=== PATIENT | female | born 1950 | race African-American/Black ===

== ENCOUNTER 2019-09-10 05:33 | Emergency (ER) | payer BC ==
[~2019-09-10] VITALS: Ht 170.2 cm; Wt 82.0 kg
[2019-09-10] MEDS ORDERED: LABETALOL 5MG/ML SYR 20 MG/4 ML SYRINGE IV ONE ×2 (06:00→09:15)
[2019-09-10 06:25] LABS: EOSINOPHILS % 3.5 % (0.0-5.0); HEMATOCRIT. 38.6 % (36.0-48.0); HEMOGLOBIN. 12.8 g/dL (12.0-16.0); MEAN CORPUSCULAR HEMOGLOBIN 31.5 pg (28.0-32.0); MEAN CORPUSCULAR VOLUME 94.7 fL (81.0-99.0); MEAN PLATELET VOLUME 9.3 fl (7.4-10.4); MONOCYTES % 5.5 % (2.0-8.0); PLATELET 211 x1000/uL (130-400); RED BLOOD CELL COUNT 4.07 mill/uL (4.2-5.4); RED CELL DISTRIBUTION WIDTH 14.3 % (11.6-14.6)
[2019-09-10 06:29] LABS: CHLORIDE 108 mEq/L (98-107)
[2019-09-10] MEDS ORDERED: MORPHINE SULFATE 4 MG/ML CPJ (NOT FOR IM USE) IV ONE ×2 (06:30→08:00)
[2019-09-10] MEDS ORDERED: IOHEXOL-350 100 ML BOTTLE ONE (07:13)
[2019-09-10] MEDS ORDERED: HYDRALAZINE 20MG/ML VIAL IV ONE ×2 (09:15→10:45)
[2019-09-10] MEDS ORDERED: ONDANSETRON HCL 4MG/2ML INJ IV ONE (11:00)
[2019-09-10 11:57] VITALS: BP 173/86
== END 2019-09-10 12:11 | disposition short-term general hospital (02) ==
LOC: ER 05:33 → CANBEDREQ 15:08
DX: S27.892A Contusion of other specified intrathoracic organs, initial encounter (principal); E78.00 Pure hypercholesterolemia, unspecified; I10 Essential (primary) hypertension; E03.9 Hypothyroidism, unspecified; Z88.2 Allergy status to sulfonamides; Z98.890 Other specified postprocedural states; Z86.79 Personal history of other diseases of the circulatory system; X58.XXXA Exposure to other specified factors, initial encounter; Y93.89 Activity, other specified; Y92.89 Other specified places as the place of occurrence of the external cause; Y99.8 Other external cause status
CPT/HCPCS: 36415; 71045; 71275; 74174; 80053; 83880; 84484; 85025; 93005; 96374; 96375; 96376; 99291; J0360; J2270; J2405; Q9967

== ENCOUNTER 2020-06-20 00:42 | Emergency (ER) | payer BC, MEDICARE ==
[~2020-06-20] VITALS: Ht 175.3 cm; Wt 63.0 kg
[2020-06-20] MEDS ORDERED: LIDOCAINE HCL/PF 1% 10 MG/ML 5ML VIAL IJ ONE (02:15)
[2020-06-20] MEDS ORDERED: BACITRACIN ZINC OINT UDPKT TOP ONE (02:15)
[2020-06-20] MEDS ORDERED: TETANUS, DIPHTHERIA, PERTUSSIS VAC/PF 0.5ML (>7YR OLD) IM ONE (02:15)
[2020-06-20 02:32] LABS: BASOPHILS % 1.3 % (0.0-2.0); EOSINOPHILS % 3.9 % (0.0-5.0); HEMATOCRIT. 32.6 % (36.0-48.0); HEMOGLOBIN. 11.1 g/dL (12.0-16.0); LYMPHOCYTES % 14.9 % (20.0-50.0); MEAN CORPUSCULAR HEMOGLOBIN 32.7 pg (28.0-32.0); MEAN CORPUSCULAR VOLUME 96.2 fL (81.0-99.0); MEAN PLATELET VOLUME 8.2 fl (7.4-10.4); MONOCYTES % 4.8 % (2.0-8.0); NEUTROPHILS % 75.1 % (40.0-76.0); PLATELET 177 x1000/uL (130-400); RED BLOOD CELL COUNT 3.39 mill/uL (4.2-5.4); RED CELL DISTRIBUTION WIDTH 13.8 % (11.6-14.6)
[2020-06-20 02:37] LABS: CHLORIDE 111 mEq/L (98-107)
[2020-06-20 02:43] LABS: INR 1.1; PARTIAL THROMBOPLASTIN TIME 23.3 sec (23.4-31.0); PROTHROMBIN TIME 11.4 sec (9.6-11.0)
[2020-06-20] MEDS ORDERED: LORAZEPAM 2MG/ML CPJ IV ONE (02:45)
[2020-06-20] MEDS ORDERED: LABETALOL HCL 20MG/4ML CARPUJECT IV SCH (03:00)
[2020-06-20 04:21] LABS: CLARITY URINE CLEAR (CLEAR); COLOR URINE YELLOW (YELLOW); KETONES URINE NEGATIVE (NEGATIVE); LEUKOCYTE ESTERASE URINE NEGATIVE (NEGATIVE); NITRITE URINE NEGATIVE (NEGATIVE); OCCULT BLOOD URINE TRACE (NEGATIVE); PROTEIN URINE 1+ (NEGATIVE); SPECIFIC GRAVITY URINE 1.014 (1.005-1.030); UROBILINOGEN URINE 0.2 E.U./dL (0.2-1.0)
[2020-06-20] MEDS ORDERED: HALOPERIDOL 5MG TABLET PO ONE (06:45)
[2020-06-20] MEDS ORDERED: LOSARTAN POTASSIUM 25 MG TABLET PO ONE (08:00)
[2020-06-20] MEDS ORDERED: ATENOLOL 25MG TABLET PO ONE (08:00)
[2020-06-20] MEDS ORDERED: ATENOLOL 50 MG TABLET PO ONE (08:00)
[2020-06-20 10:00] VITALS: BP 174/94
== END 2020-06-20 13:00 | disposition home or self-care (01) ==
LOC: ER 00:42
DX: F03.90 Unspecified dementia, unspecified severity, without behavioral disturbance, psychotic disturbance, mood disturbance, and anxiety (principal); E11.9 Type 2 diabetes mellitus without complications; I10 Essential (primary) hypertension; Z88.2 Allergy status to sulfonamides
CPT/HCPCS: 36415; 70450; 71045; 72170; 73130; 74176; 80053; 81003; 83605; 83880; 84484; 85025; 85610; 85730; 90715; 93005; 99285; J1630; J2060; J3490

== ENCOUNTER 2020-07-21 01:27 | Inpatient (IN) | payer MEDICARE ==
[~2020-07-21] VITALS: Ht 170.2 cm; Wt 60.0 kg
[2020-07-21 02:12] LABS: BASOPHILS % 0.7 % (0.0-2.0); EOSINOPHILS % 4.3 % (0.0-5.0); HEMATOCRIT. 33.5 % (36.0-48.0); LYMPHOCYTES % 31.6 % (20.0-50.0); MEAN CORPUSCULAR HEMOGLOBIN 32.7 pg (28.0-32.0); MEAN CORPUSCULAR VOLUME 99.9 fL (81.0-99.0); MEAN PLATELET VOLUME 8.6 fl (7.4-10.4); MONOCYTES % 4.1 % (2.0-8.0); NEUTROPHILS % 59.3 % (40.0-76.0); PLATELET 158 x1000/uL (130-400); RED BLOOD CELL COUNT 3.36 mill/uL (4.2-5.4)
[2020-07-21 02:19] LABS: CHLORIDE 109 mEq/L (98-107)
[2020-07-21] MEDS ORDERED: SODIUM CHLORIDE 0.9% 1,000 ML IV ONE (02:45)
[2020-07-21 02:59] LABS: INR 1.1; PROTHROMBIN TIME 11.4 sec (9.6-11.0)
[2020-07-21] MEDS ORDERED: ATENOLOL 25MG TABLET PO ONE (03:30)
[2020-07-21] MEDS ORDERED: CEFTRIAXONE 1 G PREMIX 50 ML IV ONE (03:30)
[2020-07-21 04:53] LABS: CLARITY URINE CLEAR (CLEAR); COLOR URINE YELLOW (YELLOW); KETONES URINE NEGATIVE (NEGATIVE); LEUKOCYTE ESTERASE URINE NEGATIVE (NEGATIVE); NITRITE URINE NEGATIVE (NEGATIVE); OCCULT BLOOD URINE TRACE (NEGATIVE); PH URINE 6.5 (4.5-8.0); PROTEIN URINE 1+ (NEGATIVE); SPECIFIC GRAVITY URINE 1.013 (1.005-1.030); UROBILINOGEN URINE 0.2 E.U./dL (0.2-1.0)
[2020-07-21] MEDS ORDERED: IOHEXOL-350 100 ML BOTTLE ONE (06:05)
[2020-07-21] MEDS ORDERED: LORAZEPAM 2MG/ML CPJ IV ONE ×2 (07:45→08:30)
[2020-07-21] MEDS ORDERED: ONDANSETRON HCL 4MG/2ML INJ IV PRN (10:00)
[2020-07-21] MEDS ORDERED: IPRATROPIUM/ALBUTEROL 0.5-3(2.5)MG/3ML NEB HHN PRN (10:00)
[2020-07-21] MEDS: HYDRALAZINE 20MG/ML VIAL IV PRN ×2 (10:48→17:17)
[2020-07-21 16:08] LABS: CREATINE KINASE MB FRACTION 3.5 ng/mL (0.5-3.6)
[2020-07-21] MEDS: ACETAMINOPHEN 325MG TABLET PO PRN (19:18)
[2020-07-21 23:13] LABS: CREATINE KINASE MB FRACTION 3.2 ng/mL (0.5-3.6)
[2020-07-21 23:35] LABS: *COCAINE SCREEN URINE NEGATIVE (NEGATIVE)
[2020-07-21 23:37] LABS: *AMPHETAMINES SCREEN URINE NEGATIVE (NEGATIVE); *BARBITURATES SCREEN URINE NEGATIVE (NEGATIVE); *BENZODIAZEPINES SCREEN URINE NEGATIVE (NEGATIVE); CANNABINOID URINE SCREEN PRESUMTIVE POSITIVE (NEGATIVE); METHADONE URINE SCREEN NEGATIVE (NEGATIVE); OPIATES URINE SCREEN NEGATIVE (NEGATIVE); PHENCYCLIDINE URINE SCREEN NEGATIVE (NEGATIVE)
[2020-07-22] MEDS: HYDRALAZINE 20MG/ML VIAL IV PRN ×3 (00:43→14:04)
[2020-07-22] MEDS: DIPHENHYDRAMINE 50MG/ML VIAL IV PRN ×2 (02:35→07:50)
[2020-07-22 04:34] LABS: EOSINOPHILS % 1.8 % (0.0-5.0); HEMOGLOBIN. 11.9 g/dL (12.0-16.0); LYMPHOCYTES % 20.3 % (20.0-50.0); MEAN CORPUSCULAR HEMOGLOBIN 32.2 pg (28.0-32.0); MEAN CORPUSCULAR VOLUME 97.1 fL (81.0-99.0); MEAN PLATELET VOLUME 9.1 fl (7.4-10.4); MONOCYTES % 4.7 % (2.0-8.0); NEUTROPHILS % 72.2 % (40.0-76.0); PLATELET 146 x1000/uL (130-400); RED CELL DISTRIBUTION WIDTH 13.8 % (11.6-14.6)
[2020-07-22 04:41] LABS: CHLORIDE 110 mEq/L (98-107)
[2020-07-22 04:50] LABS: LDL CHOLESTEROL 124 mg/dL (5-100)
[2020-07-22 04:52] LABS: HDL CHOLESTEROL 101 mg/dL (40-59)
[2020-07-22 10:02] LABS: T4 FREE 0.67 ng/dL (0.76-1.46)
[2020-07-22] MEDS ORDERED: LORAZEPAM 2MG/ML CPJ IM NR (11:25)
[2020-07-22] MEDS: CLONIDINE 0.1MG TABLET PO PRN ×2 (17:00→23:38)
[2020-07-23] VITALS (12 sets, daily range): BP systolic 106–173; BP diastolic 59–96
[2020-07-23] MEDS: RISPERIDONE 1MG TABLET PO SCH ×3 (00:21→09:40)
[2020-07-23] MEDS ORDERED: DEXTROSE 50% WATER 50ML SYRINGE IV PRN (03:15)
[2020-07-23] MEDS: BLOOD SUGAR DIAGNOSTIC STRIP TEST SCH ×4 (06:21→20:53)
[2020-07-23] MEDS: LEVOTHYROXINE SODIUM 100MCG TABLET PO SCH (06:21)
[2020-07-23 06:39] LABS: BASOPHILS % 0.5 % (0.0-2.0); EOSINOPHILS % 1.1 % (0.0-5.0); HEMOGLOBIN. 12.1 g/dL (12.0-16.0); LYMPHOCYTES % 19.3 % (20.0-50.0); MEAN CORPUSCULAR HEMOGLOBIN 32.9 pg (28.0-32.0); MEAN CORPUSCULAR VOLUME 97.7 fL (81.0-99.0); MONOCYTES % 6.9 % (2.0-8.0); NEUTROPHILS % 72.2 % (40.0-76.0); PLATELET 154 x1000/uL (130-400); RED BLOOD CELL COUNT 3.68 mill/uL (4.2-5.4); RED CELL DISTRIBUTION WIDTH 14.1 % (11.6-14.6)
[2020-07-23] MEDS: INSULIN LISPRO 100 UNITS/ML SUBCUT SCH ×4 (07:20→20:53)
[2020-07-23] MEDS: CLONIDINE 0.1MG TABLET PO PRN (08:16)
[2020-07-23] MEDS: RISPERIDONE 0.5MG TABLET PO SCH (20:57)
[2020-07-24] VITALS (8 sets, daily range): BP systolic 132–159; BP diastolic 42–106
[2020-07-24] MEDS: ACETAMINOPHEN 325MG TABLET PO PRN (05:16)
[2020-07-24] MEDS: LEVOTHYROXINE SODIUM 100MCG TABLET PO SCH (06:35)
[2020-07-24] MEDS: BLOOD SUGAR DIAGNOSTIC STRIP TEST SCH ×2 (06:36→12:15)
[2020-07-24] MEDS ORDERED: HALOPERIDOL LACTATE 5MG/ML VIAL IM NR (06:45)
[2020-07-24] MEDS: INSULIN LISPRO 100 UNITS/ML SUBCUT SCH ×2 (07:20→12:15)
[2020-07-24] MEDS: CLONIDINE 0.1MG TABLET PO PRN ×2 (08:36→13:00)
[2020-07-24] MEDS: RISPERIDONE 0.5MG TABLET PO SCH (08:36)
[2020-07-24] MEDS ORDERED: HALOPERIDOL LACTATE 5MG/ML VIAL IM PRN (11:15)
== END 2020-07-24 13:47 | DRG 682 ==
LOC: ER 01:27 → MICUSO 09:33 → ENRESERV 07-22 10:06 → CANRESERV 07-22 10:06 → 3WST 07-23 00:44
PROVIDERS: ADMIT Internal Medicine; ATTEND Internal Medicine
DX: I12.9 Hypertensive chronic kidney disease with stage 1 through stage 4 chronic kidney disease, or unspecified chronic kidney disease (principal); I71.01 Dissection of thoracic aorta; N17.9 Acute kidney failure, unspecified; I74.11 Embolism and thrombosis of thoracic aorta; I16.0 Hypertensive urgency; F03.90 Unspecified dementia, unspecified severity, without behavioral disturbance, psychotic disturbance, mood disturbance, and anxiety; J44.9 Chronic obstructive pulmonary disease, unspecified; K76.0 Fatty (change of) liver, not elsewhere classified; M40.209 Unspecified kyphosis, site unspecified; E89.0 Postprocedural hypothyroidism; E11.22 Type 2 diabetes mellitus with diabetic chronic kidney disease; N18.9 Chronic kidney disease, unspecified; Z78.1 Physical restraint status; Z90.710 Acquired absence of both cervix and uterus; Z90.5 Acquired absence of kidney; Z86.73 Personal history of transient ischemic attack (TIA), and cerebral infarction without residual deficits; Z86.79 Personal history of other diseases of the circulatory system; Z88.2 Allergy status to sulfonamides
CPT/HCPCS: 36415; 70551; 71045; 71250; 71275; 74176; 80048; 80053; 80061; 80305; 81003; 82550; 82553; 82962; 83605; 83880; 84145; 84439; 84443; 84481; 84484; 85025; 93005; 93970; 96365; 99291; J0360; J0696; J1200; J1630; J2060; J7030; J7040; Q9967; A4315

== ENCOUNTER 2022-02-02 13:57 | Emergency (ER) | payer MEDICARE, MEDICAID ==
[~2022-02-02] VITALS: Ht 165.1 cm; Wt 50.0 kg
[2022-02-02] MEDS ORDERED: MORPHINE SULFATE 2 MG/ML CPJ (NOT FOR IM USE) IV ONE (14:30)
[2022-02-02 18:00] VITALS: BP 139/84
[2022-02-02] MEDS ORDERED: ACETAMINOPHEN 650MG SUPP PR ONE (19:00)
== END 2022-02-02 20:57 | disposition home or self-care (01) ==
LOC: ER 13:57 → CANBEDREQ 16:25 → ER 20:57
DX: J96.01 Acute respiratory failure with hypoxia (principal); C80.1 Malignant (primary) neoplasm, unspecified; C79.89 Secondary malignant neoplasm of other specified sites; G93.49 Other encephalopathy; I71.00 Dissection of unspecified site of aorta; I10 Essential (primary) hypertension; Z86.73 Personal history of transient ischemic attack (TIA), and cerebral infarction without residual deficits; Z88.2 Allergy status to sulfonamides
CPT/HCPCS: 96374; 99283; J2270